=== PATIENT | male | born 1995 | race African-American/Black ===

== ENCOUNTER 2022-03-06 19:41 | Emergency (ER) | payer SELFPAY ==
[~2022-03-06] VITALS: Ht 185.4 cm; Wt 100.0 kg
[2022-03-07 01:00] VITALS: BP 113/68
== END 2022-03-07 01:00 | disposition home or self-care (01) ==
LOC: ER 19:41
DX: T40.711A Poisoning by cannabis, accidental (unintentional), initial encounter (principal); T51.91XA Toxic effect of unspecified alcohol, accidental (unintentional), initial encounter; F10.921 Alcohol use, unspecified with intoxication delirium; F12.121 Cannabis abuse with intoxication delirium; Y92.9 Unspecified place or not applicable; Y90.9 Presence of alcohol in blood, level not specified
CPT/HCPCS: 93005; 99285; L1830; Z7610